=== PATIENT | male | born 1985 | race Two or more races ===

== ENCOUNTER 2025-01-09 07:37 | Emergency (ER) | payer MEDICAID ==
[~2025-01-09] VITALS: Ht 167.6 cm; Wt 74.8 kg
[2025-01-09 07:50] VITALS: BP 97/68; TEMP 98.1
[2025-01-09 08:26] LABS: BASOPHILS % (AUTO) 0.1 % (0.0-2.0); HEMATOCRIT 41 % (39-51); HEMOGLOBIN 13.2 g/dL (13.5-17.5); LYMPHOCYTES # (AUTO) 0.5 K/uL (0.8-4.8); LYMPHOCYTES % (AUTO) 4.1 % (20.0-44.0); MEAN CORPUSCULAR HEMOGLOBIN 26 PG (26.0-33.0); MEAN CORPUSCULAR HGB CONC 32 g/dl (31.0-36.0); MEAN CORPUSCULAR VOLUME 80 fL (80-96); MONOCYTES # (AUTO) 0.8 K/uL (0.1-1.30); MONOCYTES % (AUTO) 6.1 % (2.0-12.0); NEUTROPHILS # (AUTO) 11.7 K/uL (1.8-8.9); NEUTROPHILS % (AUTO) 89.7 % (43.0-81.0); PLATELET COUNT (AUTO) 222 K/uL (150-450); RED BLOOD CELL COUNT(AUTO) 5.12 MIL/uL (4.5-6.0); RED CELL DISTRIBUTION WIDTH 14.1 % (11.5-15.0); WHITE BLOOD COUNT (AUTO) 13.1 K/uL (4.3-11.0)
[2025-01-09 08:36] LABS: CALCIUM, SERUM 9.5 mg/dL (8.5-10.1); POTASSIUM 4.3 mmol/L (3.5-5.1)
[2025-01-09 08:50] LABS: LACTIC ACID 1.7 mmol/L (0.4-2.0)
[2025-01-09] MEDS ORDERED: IOHEXOL-300 100 ML VIAL IV ONE (08:51)
[2025-01-09] MEDS ORDERED: IV NS 0.9% 250 ML IV ONE (08:51)
[2025-01-09] MEDS ORDERED: CT SWABBABLE VALVE TRANS SET 1 EA INFUS.SET MC ONE (08:51)
[2025-01-09] MEDS ORDERED: ONDANSETRON HCL/PF 4 MG/2 ML VIAL ONE (08:52)
[2025-01-09] MEDS ORDERED: MORPHINE SULFATE INJ 4 MG/ML DISP.SYRIN ONE (08:53)
[2025-01-09] MEDS: IV NS 0.9% 1,000 ML BAG IV ONE (09:13)
[2025-01-09] MEDS: ONDANSETRON HCL/PF - ER 4 MG/2 ML VIAL IV ONE (09:16)
[2025-01-09] MEDS: MORPHINE SULFATE INJ 2 MG/ML DISP.SYRIN IV ONE (09:16)
[2025-01-09] MEDS: PIPERACILLIN /TAZOBACTAM 3.375 G in IV D5W 50 ML IV ONE (10:12)
[2025-01-09] MEDS ORDERED: IBUPROFEN 600 MG TABLET ONE (10:56)
[2025-01-09] MEDS: IBUPROFEN 600 MG TABLET PO ONE (11:03)
[2025-01-09 11:10] VITALS: O2SAT 98
== END 2025-01-09 11:12 | disposition left against medical advice (07) ==
LOC: ER 07:37
DX: L02.01 Cutaneous abscess of face (principal); Z60.2 Problems related to living alone
CPT/HCPCS: 99285; 96365; 70487; 96375; 96361; 85025; 80048; 87040 ×2; 83605; 36415; J2270; J2405 ×2; J2543; J7060; J7030; J7050; Q9967